=== PATIENT | female | born 1980 | race Caucasian/White ===

== ENCOUNTER 2024-05-10 10:48 | Day surgery (SDC) | payer OTHER ==
[2024-05-10 11:11] VITALS: RESP 16
[2024-05-10] MEDS ORDERED: Sodium Chloride 0.9% 500 ML 500 ML IV ONE (11:19)
[2024-05-10] MEDS: Sodium Chloride 0.9% 500 ML 500 ML IV ONE (11:22)
[2024-05-10] MEDS ORDERED: propofoL IV ONE ×4 (11:37→12:16)
[2024-05-10] MEDS ORDERED: Versed 2 MG/2 ML Injection ONE (11:38)
[2024-05-10] MEDS ORDERED: GlucaGen 1 MG ONE (12:06)
[2024-05-10] MEDS ORDERED: Lactated Ringers 1,000 ML IV ONE (12:19)
[2024-05-10] MEDS: Sodium Chloride 0.9% 10 ML FLUSH Syringe PORT FLUSH PRN (13:34)
[2024-05-10 13:40] VITALS: BP 120/77; PULSE 77; TEMP 97.6; O2SAT 100
--- NOTE | 2024-05-13 11:58 | OP ---
SURGERY DATE/TIME: 05/10/2024 [id number] PREOPERATIVE DIAGNOSES: 1) Mcbride disease. 2) Ulcerative colitis. POSTOPERATIVE DIAGNOSES: 1) Hiatal hernia. 2) Mcbride esophagitis. 3) Mild gastritis. 4) Gastric polyp. 5) Ulcerative colitis. 6) Poor rectal sphincter tone. 7) Hemorrhoid disease. PROCEDURES: 1) Esophagogastroduodenoscopy with hot snare gastric polyp x1, cold snare gastric polyp x4 and cold forceps biopsies. 2) Colonoscopy with cold forceps biopsies. SURGEON: Brianna Godinez MD ANESTHESIA: MAC. ESTIMATED BLOOD LOSS: Minimal. COMPLICATIONS: None. SPECIMENS: 1) Antral biopsy. 2) Gastric polyp. 3) Distal esophagus for Mcbride's. 4) Ascending, transverse, descending, sigmoid and rectal biopsies. INDICATIONS: This is a patient who was referred due to a history of both ulcerative colitis and Mcbride disease for EGD and colonoscopy. I have also referred her to GI for medical management of the ulcerative colitis. The patient understands the risk of EGD and colonoscopy. She understands the benefits, the alternatives, as well as the procedure details. I have seen her on the day of the procedure. She did fine with her prep and is ready for the procedures. I have answered all the questions. Her H and P and consent have been reviewed, completed and confirmed. DESCRIPTION OF PROCEDURE AND FINDINGS: She was then brought back to the operative suite, anesthesia induced, and she was laid in the left lateral decubitus position. I then inserted the scope gently into the mouth, oropharynx down into the esophagus, stomach, and then the duodenum. We advanced the scope until approximately the second portion of the duodenum. The duodenum itself appeared to be normal. Within the stomach, she does have gastritis. It is most significant into the antrum but extends into the body. It is mild. She has multiple gastric polyps. These all appear to be benign. There was 1 polyp that looked slightly more irritated and larger than the others. I resected this with a hot snare. The other polyps I sampled, taking the most significant polyps in size or appearance and removed these with cold snares. Again, I think they are all very benign appearing and these were removed for sampling. There are innumerable polyps remaining and these have all been looked at and they all appear to be very benign and consistent with PPI use. I also took biopsies with cold forceps in the antrum. We also retroflexed to look at her GE junction and cardia. Again, no other findings. She does have gastric polyps throughout. All benign-appearing. She does have a small hiatal hernia. Then the scope was unretroflexed. All sites are hemostatic. There are no findings of concern and the scope was then gently withdrawn into the distal esophagus. The GE junction is at approximately 38.5 cm. I then took multiple biopsies using cold forceps due to her history of Mcbride esophagitis. She does have some mild columns that extend within 1 to 1.5 cm and I biopsied all sites in a targeted manner and then also including all quadrants to ensure good sampling. The remainder of her esophagus is normal. The scope was fully removed and The patient tolerated this part of the procedure well. She was then repositioned for a colonoscopy. First, a rectal exam was done. She does have some mild external and internal hemorrhoidal disease. I do not recommend surgery at this time. I would try conservative treatment. She also has an extremely lax rectal sphincter. She has essentially no tone during the exam. I then inserted the scope and gently advanced it to the level of the cecum. Overall, the prep was satisfactory and her mucosa looked very health. She had a trace bit of erythema in the superior rectum which may be prep related but otherwise, she did not have any clear findings of gross ulcerative colitis disease. I did take multiple biopsies at all aspects of the colon for sampling for microscopic pathology and this included the ascending, transverse, descending, sigmoid and rectal area and this was all with cold forceps. All sites were hemostatic. I did not see any polyps. She tolerated this procedure very well. There were no immediate complications. I will await her final pathology results and then we will determine her next interval. Tentatively, we will plan to do an EGD in approximately 2 years and a colonoscopy in 2 years, but we will base this on our final GI evaluation. I have discussed with the patient's family all of her findings as well as instructions and then followup instructions.
== END 2024-05-10 14:20 | disposition home or self-care (01) ==
LOC: SDC 10:48
PROVIDERS: ATTEND Surgery
DX: K44.9 Diaphragmatic hernia without obstruction or gangrene (principal); K22.70 Barrett's esophagus without dysplasia; K51.90 Ulcerative colitis, unspecified, without complications; E11.9 Type 2 diabetes mellitus without complications; K29.70 Gastritis, unspecified, without bleeding; K31.7 Polyp of stomach and duodenum; K64.4 Residual hemorrhoidal skin tags; K64.8 Other hemorrhoids; R19.8 Other specified symptoms and signs involving the digestive system and abdomen
CPT/HCPCS: 82947; 88305; J1610; J2250; J2704